=== PATIENT | male | born 1985 | race African-American/Black ===

== ENCOUNTER 2016-11-17 18:27 | Emergency (ER) | payer MEDICAID ==
[~2016-11-17] VITALS: Ht 182.9 cm; Wt 91.0 kg
[2016-11-17 18:28] VITALS: BP 160/78; PULSE 80; RESP 16; TEMP 98.8; O2SAT 100
--- NOTE | 2016-11-17 18:45 | PD ---
Physical Exam Date Seen by Provider: Nov 17, 2016 Time Seen by Provider: 18:44 Data Data Last Documented VS Vital Signs Date Time Temp Pulse Resp B/P (MAP) Pulse Ox O2 Delivery O2 Flow Rate FiO2 11/17/16 18:28 98.8 80 16 160/78 (105) 100 Room Air MDM Supervised Visit with SHADE: No Narrative Course 31 YO M with complaint of generalized weakness x "weeks." Endorses intermittent left sided belly pain. --F/C, N/C. Vitals reviewed. Patient seen in triage, awaiting bed placement. Scripts No Active Prescriptions or Reported Meds Yenny Espinal Nov 17, 2016 18:45
== END 2016-11-17 20:57 | disposition left against medical advice (07) ==
LOC: NED 18:27
DX: R53.1 Weakness (principal); Z53.21 Procedure and treatment not carried out due to patient leaving prior to being seen by health care provider
CPT/HCPCS: 99281